=== PATIENT | male | born 1950 | race Caucasian/White ===

== ENCOUNTER 2021-11-17 23:52 | Emergency (ER) | payer OTHER ==
--- NOTE | 2021-11-18 01:34 | ER ---
Nurse's Notes [facility] Name: Adrian Park Jr Age: 71 yrs Sex: Male : 1950 Arrival Date: 11/17/2021 Time: 23:55 Bed 17 Private MD: Diagnosis: Hydrocele, unspecified;Orchitis Presentation: 11/17 23:59 Chief complaint: Patient states: The testicular pain started this morning, I thought it jb4 was due to sitting on a hard surface yesterday. The pain has been getting worse and my thought I may have testicular torsion. The pain is to the point it is almost making me pass out. Coronavirus screen: At this time, the client does not indicate any symptoms associated with coronavirus-19. Ebola Screen: No symptoms or risks identified at this time. Initial Sepsis Screen: Does the patient meet any 2 criteria? No. Patient's initial sepsis screen is negative. Does the patient have a suspected source of infection? No. Patient's initial sepsis screen is negative. Risk Assessment: Do you want to hurt yourself or someone else? Patient reports no desire to harm self or others. Onset of symptoms was November 18, 2021. Transition of care: patient was not received from another setting of care. 23:59 Method Of Arrival: Wheelchair jb4 23:59 Acuity: BILL 3 jb4 Historical: - Allergies: 11/18 00:02 Lipitor; jb4 - PMHx: 00:02 HTN; cancer; jb4 - PSHx: 00:02 face surgery; SHAMA foot surgery; jb4 - Immunization history:: Adult Immunizations up to date. - Social history:: Smoking status: Patient denies any tobacco usage or history of. Screenin:00 Abuse screen: Denies threats or abuse. Denies injuries from another. Nutritional lg3 screening: No deficits noted. Tuberculosis screening: No symptoms or risk factors identified. Fall Risk None identified. Assessment: 02:00 General: Appears in no apparent distress. comfortable, Behavior is calm, cooperative. lg3 Pain: Complains of pain in right testicle. Neuro: No deficits noted. Level of Consciousness is awake, alert, obeys commands, Oriented to person, place, time, situation. Cardiovascular: No deficits noted. Denies chest pain, shortness of breath, Capillary refill < 3 seconds Clubbing of nail beds is absent JVD is absent Patient's skin is warm and dry. Respiratory: No deficits noted. Airway is patent Trachea midline Respiratory effort is even, unlabored, Respiratory pattern is regular, symmetrical, Breath sounds are clear bilaterally. GI: Abdomen is round non-distended, Bowel sounds present X 4 quads. Abd is soft and non tender X 4 quads. : No deficits noted. No signs and/or symptoms were reported regarding the genitourinary system. EENT: No deficits noted. No signs and/or symptoms were reported regarding the EENT system. Derm: No deficits noted. No signs and/or symptoms reported regarding the dermatologic system. Skin is intact, is healthy with good turgor, Skin is dry, Skin temperature is warm. Musculoskeletal: No deficits noted. No signs and/or symptoms reported regarding the musculoskeletal system. Circulation, motion, and sensation intact. Range of motion: intact in all extremities. 03:10 Reassessment: Patient appears in no apparent distress at this time. No changes from lg3 previously documented assessment. Patient and/or family updated on plan of care and expected duration. Pain level reassessed. Patient is alert, oriented x 3, equal unlabored respirations, skin warm/dry/pink. Patient states feeling better. Vital Signs: 11/17 23:59 BP 124 / 77; Pulse 78; Resp 16; Temp 99.1(TE); Pulse Ox 100% on R/A; Weight 108.86 kg jb4 (R); Height 5 ft. 6 in. (167.64 cm) (R); 11/18 03:10 BP 128 / 85; Pulse 84; Resp 16 S; Temp 98.8(O); Pulse Ox 100% on R/A; lg3 11/17 23:59 Body Mass Index 38.74 (108.86 kg, 167.64 cm) jb4 ED Course: 11/17 23:55 Patient arrived in ED. bp1 11/18 00:02 Triage completed. jb4 00:02 Arm band placed on right wrist. jb4 00:20 Libertad Escobar, RN is Primary Nurse. lg3 00:28 Mk Desouza MD is Attending Physician. kay 00:57 US Scrotum Testicles In Process Unspecified. EDMS 01:32 Wong Mcgill MD is Referral Physician. kay 01:50 Initial lab(s) drawn, by me, sent to lab. Inserted saline lock: 20 gauge in right bb antecubital area, using aseptic technique. Blood collected. 02:00 Patient has correct armband on for positive identification. Placed in gown. Bed in low lg3 position. Call light in reach. Side rails up X 1. Client placed on continuous cardiac and pulse oximetry monitoring. NIBP monitoring applied. Door closed. Noise minimized. Warm blanket given. 03:09 No provider procedures requiring assistance completed. IV discontinued, intact, lg3 bleeding controlled, No redness/swelling at site. Pressure dressing applied. Administered Medications: 01:44 Drug: LevOfloxacin 750 mg Route: PO; lg3 01:44 Follow up: Response: No adverse reaction lg3 01:59 Drug: NS 0.9% 1000 ml Route: IV; Rate: 1 bolus; Site: right antecubital; lg3 03:09 Follow up: Response: No adverse reaction; IV Status: Completed infusion; IV Intake: lg3 1000ml 01:59 Drug: Rocephin (cefTRIAXone) 2 grams Route: IV; Rate: per protocol; Site: right lg3 antecubital; 01:59 Follow up: Response: No adverse reaction; IV Status: Completed infusion; IV Intake: [id number] 01:59 Drug: morphine 2 mg Route: IVP; Infused Over: 4 mins; Site: right antecubital; lg3 02:00 Follow up: Response: No adverse reaction lg3 01:59 Drug: Zofran (Ondansetron) 4 mg Route: IVP; Site: right antecubital; lg3 02:00 Follow up: Response: No adverse reaction lg3 Medication: 03:10 VIS not applicable for this client. lg3 Intake: 01:59 IV: 10ml; Total: 10ml. lg3 03:09 IV: 1000ml; Total: 1010ml. lg3 Outcome: 01:33 Discharge ordered by MD. villanueva 03:09 Discharged to home ambulatory. lg3 03:09 Condition: stable 03:09 Discharge instructions given to patient, Instructed on discharge instructions, follow up and referral plans. medication usage, Demonstrated understanding of instructions, follow-up care, medications, Prescriptions given X 2. 03:28 Patient left the ED. lg3 Signatures: Dispatcher [employer] EDMk Hou MD MD cha Ballard Kasia, RN RN bb Jeramy Og, RN RN jb4 Libertad Escobar RN RN lg3 Fannie De Anda
--- NOTE | 2021-11-18 01:34 | EDPHYS ---
Physician Documentation [facility] Name: Adrian Park Jr Age: 71 yrs Sex: Male : 1950 Arrival Date: 11/17/2021 Time: 23:55 Bed 17 Private MD: JESSICA Physician Mk Desouza HPI: 11/18 01:29 This 71 yrs old Male presents to ER via Wheelchair with complaints of kay Testicular Pain. 01:29 The patient presents with tenderness, of the right testicle, of the right inguinal kay area. Onset: The symptoms/episode began/occurred 2 day(s) ago. Modifying factors: The symptoms are alleviated by remaining still, the symptoms are aggravated by movement, pressure. Associated signs and symptoms: The patient has no apparent associated signs or symptoms. Severity of symptoms: At their worst the symptoms were mild, moderate, in the emergency department the symptoms are unchanged. The patient has not experienced similar symptoms in the past. Historical: - Allergies: 00:02 Lipitor; jb4 - PMHx: 00:02 HTN; cancer; jb4 - PSHx: 00:02 face surgery; SHAMA foot surgery; jb4 - Immunization history:: Adult Immunizations up to date. - Social history:: Smoking status: Patient denies any tobacco usage or history of. ROS: 01:30 Constitutional: Negative for fever, chills, and weight loss, Eyes: Negative for injury, kay pain, redness, and discharge, ENT: Negative for injury, pain, and discharge, Neck: Negative for injury, pain, and swelling, Cardiovascular: Negative for chest pain, palpitations, and edema, Respiratory: Negative for shortness of breath, cough, wheezing, and pleuritic chest pain, Abdomen/GI: Negative for abdominal pain, nausea, vomiting, diarrhea, and constipation, Back: Negative for injury and pain, MS/Extremity: Negative for injury and deformity, Skin: Negative for injury, rash, and discoloration, Neuro: Negative for headache, weakness, numbness, tingling, and seizure, Psych: Negative for depression, anxiety, suicide ideation, homicidal ideation, and hallucinations, Allergy/Immunology: Negative for hives, rash, and allergies, Endocrine: Negative for neck swelling, polydipsia, polyuria, polyphagia, and marked weight changes, Hematologic/Lymphatic: Negative for swollen nodes, abnormal bleeding, and unusual bruising. 01:30 : Positive for testicular pain of the right testicle. Exam: 01:30 Constitutional: This is a well developed, well nourished patient who is awake, alert, kay and in no acute distress. Head/Face: Normocephalic, atraumatic. Eyes: Pupils equal round and reactive to light, extra-ocular motions intact. Lids and lashes normal. Conjunctiva and sclera are non-icteric and not injected. Cornea within normal limits. Periorbital areas with no swelling, redness, or edema. ENT: Nares patent. No nasal discharge, no septal abnormalities noted. Tympanic membranes are normal and external auditory canals are clear. Oropharynx with no redness, swelling, or masses, exudates, or evidence of obstruction, uvula midline. Mucous membranes moist. Neck: Trachea midline, no thyromegaly or masses palpated, and no cervical lymphadenopathy. Supple, full range of motion without nuchal rigidity, or vertebral point tenderness. No Meningismus. Chest/axilla: Normal chest wall appearance and motion. Nontender with no deformity. No lesions are appreciated. Cardiovascular: Regular rate and rhythm with a normal S1 and S2. No gallops, murmurs, or rubs. Normal PMI, no JVD. No pulse deficits. Respiratory: Lungs have equal breath sounds bilaterally, clear to auscultation and percussion. No rales, rhonchi or wheezes noted. No increased work of breathing, no retractions or nasal flaring. Abdomen/GI: Soft, non-tender, with normal bowel sounds. No distension or tympany. No guarding or rebound. No evidence of tenderness throughout. Back: No spinal tenderness. No costovertebral tenderness. Full range of motion. Skin: Warm, dry with normal turgor. Normal color with no rashes, no lesions, and no evidence of cellulitis. MS/ Extremity: Pulses equal, no cyanosis. Neurovascular intact. Full, normal range of motion. Neuro: Awake and alert, GCS 15, oriented to person, place, time, and situation. Cranial nerves II-XII grossly intact. Motor strength 5/5 in all extremities. Sensory grossly intact. Cerebellar exam normal. Normal gait. Psych: Awake, alert, with orientation to person, place and time. Behavior, mood, and affect are within normal limits. 01:30 : CVA tenderness, is absent, Male external genitalia: erythema, is seen in the right inguinal area, that is moderate, swelling, tenderness. Vital Signs: 11/17 23:59 BP 124 / 77; Pulse 78; Resp 16; Temp 99.1(TE); Pulse Ox 100% on R/A; Weight 108.86 kg jb4 (R); Height 5 ft. 6 in. (167.64 cm) (R); 11/18 03:10 BP 128 / 85; Pulse 84; Resp 16 S; Temp 98.8(O); Pulse Ox 100% on R/A; lg3 11/17 23:59 Body Mass Index 38.74 (108.86 kg, 167.64 cm) jb4 MDM: 00:28 Patient medically screened. [facility] 01:31 Differential diagnosis: nonspecific abdominal pain, UTI. Data reviewed: vital signs, [facility] nurses notes. 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 rate is 78 beats/min, Pulse oximetry: on room air is 100 %. Counseling: I had a detailed discussion with the patient and/or guardian regarding: the historical points, exam findings, and any diagnostic results supporting the discharge/admit diagnosis, lab results, radiology results, the need for outpatient follow up, for definitive care, a family practitioner, a urologist. 11/18 00:41 Order name: CBC with Diff [facility] 11/18 00:41 Order name: Comprehensive Metabolic Panel [facility] 11/18 00:20 Order name: US Scrotum Testicles kb Administered Medications: 01:44 Drug: LevOfloxacin 750 mg Route: PO; lg3 01:44 Follow up: Response: No adverse reaction lg3 01:59 Drug: NS 0.9% 1000 ml Route: IV; Rate: 1 bolus; Site: right antecubital; lg3 03:09 Follow up: Response: No adverse reaction; IV Status: Completed infusion; IV Intake: lg3 1000ml 01:59 Drug: Rocephin (cefTRIAXone) 2 grams Route: IV; Rate: per protocol; Site: right lg3 antecubital; 01:59 Follow up: Response: No adverse reaction; IV Status: Completed infusion; IV Intake: 18nxmi0 01:59 Drug: morphine 2 mg Route: IVP; Infused Over: 4 mins; Site: right antecubital; lg3 02:00 Follow up: Response: No adverse reaction lg3 01:59 Drug: Zofran (Ondansetron) 4 mg Route: IVP; Site: right antecubital; lg3 02:00 Follow up: Response: No adverse reaction lg3 Disposition Summary: 11/18/21 01:33 Discharge Ordered Location: Home [facility] Problem: new kay Symptoms: have improved kay Condition: Stable kay Diagnosis - Hydrocele, unspecified kay - Orchitis kay Followup: kay - With: Private Physician - When: 2 - 3 days - Reason: Recheck today's complaints, Continuance of care, Re-evaluation by your physician Followup: kay - With: Wong Mcgill MD - When: 2 - 3 days - Reason: Recheck today's complaints, Continuance of care, Re-evaluation by your physician Discharge Instructions: - Discharge Summary Sheet kay - Orchitis kay - Testicular Self-Exam kay - Hydrocele, Adult [facility] Forms: - Medication Reconciliation Form kay - Thank You Letter kay - Antibiotic Education kay - Prescription Opioid Use [facility] Prescriptions: - levofloxacin 750 mg Oral Tablet - take 1 tablet by ORAL route once daily; 7 tablet; Refills: 0, Product Selection [facility] Permitted - Tylenol-Codeine #3 300 mg-30 mg Oral - take 2 tablet by ORAL route every 6 hours; 20 tablet; Refills: 0, Product [facility] Selection Permitted Signatures: Dispatcher [employer] Mk Wayne MD MD cha Bryson, James, RN RN jb4 Libertad Escobar RN RN lg3
[2021-11-18] MEDS ORDERED: MORPHINE 2 MG/ML SYR ONE (01:45)
[2021-11-18] MEDS ORDERED: NA CHLORIDE 0.9% 1,000 ML ONE (01:45)
[2021-11-18] MEDS ORDERED: ONDANSETRON 4 MG/2 ML VIAL ONE (01:45)
[2021-11-18] MEDS ORDERED: CEFTRIAXONE 2000 MG/VIAL ONE (01:45)
[2021-11-18] MEDS ORDERED: levoFLOXacin 750 MG TAB ONE (01:50)
[2021-11-18 02:09] LABS: Absolute Lymphocytes (CBC) 0.8 K/uL (0.7-4.9); Hematocrit 36.3 % (39.6-49.0); Lymphocytes % 8.1 % (15.3-44.8); MCV 91.5 fL (80-100); MPV 8.7 fL (7.6-11.3); RBC Red Blood Cell Count 3.97 M/uL (4.33-5.43)
[2021-11-18 02:19] LABS: Albumin 3.9 g/dL (3.4-5.0); Bilirubin Total 0.6 mg/dL (0.2-1.0); Protein, Total 7.5 g/dL (6.4-8.2)
[2021-11-18 03:42] VITALS: O2SAT 100
[2021-11-18 03:44] VITALS: BP 128/85; TEMP 98.8
--- NOTE | 2021-11-18 16:01 | RAD REPORT ---
EXAM DESCRIPTION: US Scrotum CLINICAL HISTORY: The patient is 71 years old and is Male; PAIN TECHNIQUE: Real-time ultrasound of the scrotum with color Doppler and image documentation. COMPARISON: No relevant prior studies available. FINDINGS: RIGHT TESTICLE: The right testicle measures 3.3 x 1.9 x 2.5 cm. The right testicle is ho mogeneous. Normal arterial and venous color Doppler and spectral waveform is present. LEFT TESTICLE: The left testicle measures 4.0 x 1.7 x 2.7 cm. The left testicle is homogeneous. N ormal arterial and venous color Doppler and spectral waveform is present. EPIDIDYMIDES: Unremarkable. SCROTUM: Small bilateral hydroceles are present. IMPRESSION: Unremarkable scrotal ultrasound. Electronically signed by: Kim Sandy MD 11/18/2021 10:36 PM CDT Due to temporary technical issues with the PACS/Fluency reporting system, reports are being signed by the in house radiologists without review as a courtesy to insure prompt reporting. The interpreting radiologist is fully responsible for the content of the report.
== END 2021-11-18 03:28 | disposition home or self-care (01) ==
LOC: ER 23:52
DX: N43.3 Hydrocele, unspecified (principal); N45.2 Orchitis; I10 Essential (primary) hypertension
CPT/HCPCS: 96361; 85025; 36415; 80053; 76870; 96375; 96374; 99284; J2270; J7030; J2405; J0696

== ENCOUNTER 2022-04-01 07:26 | Day surgery (SDC) | payer OTHER ==
[2022-03-24 14:49] LABS: Absolute Lymphocytes (CBC) 1.1 K/uL (0.7-4.9); Hematocrit 37.5 % (39.6-49.0); Lymphocytes % 23.8 % (15.3-44.8); RBC Red Blood Cell Count 4.03 M/uL (4.33-5.43)
--- NOTE | 2022-03-24 14:56 | RAD REPORT ---
EXAM DESCRIPTION: RAD - Chest Pa And Lat (2 Views) - 03/24/2022 2:44 pm CLINICAL HISTORY: Pre op pending urolift Chest pain. COMPARISON: No comparisons FINDINGS: The lungs are clear. The heart is upper limit normal in size. No displaced fractures. IMPRESSION: No acute or concerning finding suspected.
[2022-03-24 14:59] LABS: Protime INR 1.1
--- NOTE | 2022-03-25 08:22 | EKG ---
Test Date: 2022-03-24 Test Time: 14:17:35 Accounting Bookkeeper: KAROL MEASUREMENT RESULTS: Intervals: Rate: 60 AR: 210 QRSD: 104 QT: 396 QTc: 396 [place]: P: 60 AR: 210 QRS: -53 T: 3 INTERPRETIVE STATEMENTS: Sinus rhythm with 1st degree AV block Low voltage QRS Left anterior fascicular block Cannot rule out Inferior infarct (masked by fascicular block?), age undetermined Possible Anterolateral infarct, age undetermined Abnormal ECG Compared to ECG 06/17/2006 10:10:29 First degree AV block now present Low QRS voltage now present Left anterior fascicular block now present Myocardial infarct finding still present Electronically Signed On 03-25-22 08:19:56 WORKERS COMPENSATION EXAMINER by Rasta Wells
[~2022-04-01 07:26] MED LIST: Gentamicin Inj 240 MG in NA CHLORIDE 0.9% 100 ML IV SCH
[2022-04-01] MEDS ORDERED: AMPICILLIN SODIUM 2 GM/VIAL VIAL ONE (07:33)
[2022-04-01] MEDS ORDERED: Ringers Lactate 1,000 ML IV ONE (07:33)
[2022-04-01] MEDS ORDERED: LIDOCAINE 1% MPF 5 ML VIAL ONE (08:01)
[2022-04-01] MEDS ORDERED: propofoL 200 MG/20 ML VIAL IV ONE ×2 (08:01→08:21)
[2022-04-01] MEDS ORDERED: MIDAZOLAM HCL 2 MG/2 ML INJ ONE (08:01)
[2022-04-01] MEDS ORDERED: FENTANYL CITR 100 MCG/2 ML ONE (08:01)
[2022-04-01] MEDS ORDERED: TRAMADOL 37.5mg/APAP 325mg PER TAB PO ONE (08:14)
[2022-04-01] MEDS ORDERED: PHENAZOPYRIDINE 100MG TAB PO ONE ×2 (08:14→09:50)
[2022-04-01] MEDS ORDERED: ONDANSETRON 4 MG/2 ML VIAL ONE (08:29)
[2022-04-01] MEDS ORDERED: dexAMETHasone 10 MG/ML VIAL ONE (08:29)
[2022-04-01] MEDS ORDERED: TRAMADOL 37.5mg/APAP 325mg PER TAB ONE (09:49)
[2022-04-01 10:41] VITALS: BP 124/66; TEMP 97; O2SAT 98
--- NOTE | 2022-04-07 10:54 | OP ---
Surgeon: NAHUM BORJA Preoperative Diagnosis: Benign prostatic hypertrophy with lower urinary tract obstruction and sympto ms. Postoperative Diagnosis: Benign prostatic hypertrophy with lower urinary tract obstruction and sympt oms. Principal Procedure: Prostatic urethral lift/UroLift with 6 implants placed. Indication For Procedure: Mr. Chandler presented to Urology Clinic with bothersome urinary symptoms, refractory to medical therapy. He underwent outpatient evaluation revealing an approximately 25 g gl and and lateral lobar hypertrophy with an elevated median bar. He was counseled on potential options for surgical therapy to include the UroLift and other ablative techniques and elected the UroLift. Procedure In Detail: The patient was consented in the preoperative holding area before being transfe rred to the operative suite, where general anesthesia was induced. He was given ampicillin 2 g and g entamicin 2-3 mg/kg IV antimicrobial prophylaxis and Pneumoboots were provided for DVT prophylaxis. He was placed in the lithotomy position, padded, and secured to the table appropriately. His genital ia was prepped with Hibiclens and he was draped in standard fashion. The case was begun using the 20 -Pakistani UroLift obturator and scope to traverse the urethra and into the bladder with ease. The prev iously noted elevated bladder neck was again encountered along the lateral lobar hypertrophy. The bl adder was decompressed, and the cystoscope bridge was replaced with the UroLift delivery device. The first treatment site was the patient's left side approximately 2 cm distal to the bladder neck. The distal tip of the delivery device was then angled laterally, approximately 10 degrees at this positi on decompressed the lateral lobe. The trigger was pulled deploying the needle containing the implant through the prostate. The needle was retracted allowing one end of the implant to be delivered to t he capsular surface of the prostate, and then the implant was tensioned to ensure capsular seeding. Additional tensioning was then undertaken and then the angle goes back to the midline before advancin g until the white line was observed in the delivery [place] at which point the urethral infuse was affixe d to the monofilament, tailoring the size of the implant. An excess filament was severed. The deliv jim device was then readvanced into the bladder and a second implant was placed into the bladder. Th e second delivery device was then used to target an implant at the bladder neck, this time about 1.5 cm distal to the bladder neck in order to be a little closer and achieve a bit more of an anterior el evation at the level of the bladder neck. A similar protocol was undertaken to seat that implant and deliver the capsular tab, which ended up at the bladder neck nicely elevating it with the urethral e ndpiece placed within about 0.5 cm of the bladder neck, but nicely invaginated into the anterior loba r tissue. As a result, I then switched the delivery device for visual obturator and surveyed the kay nnel. There was still some anterior overhang largely emanating from the left anterolateral surface o f the prostate, mostly at the bladder neck and so, I determined that an additional implant would even tually need to be placed on the left side a bit closer to the bladder neck, then the original implant was placed. There was additional apical and mid gland lateral lobar hypertrophy, which was visible, so I selected the next implant site at the left apical region at the level of the verumontanum. An implant was delivered there and did lateralize the apical lateral tissue. An additional implant was then placed on the right side at the level of the verumontanum. This created a nice open channel at the apex of the prostate. I then selected a fifth implant site at the previously discussed left ante rolateral bladder neck region, so that implant was placed at approximately 1.5 cm distal to the bladd er neck and did nicely elevate the bladder neck in that region creating a nice open channel. Some re sidual lateral lobar tissue within the mid gland region was observed on the left side, also contribut ing to some anterolateral overhang from the right side of the prostate, so a 6th implant was placed t his time more distal to the bladder neck and between that and the apical implant more anteriorly in o rder to nicely elevate the bladder neck and create that continuous anterior channel, visible from the verumontanum into the bladder. In the end, with his bladder decompressed, I then surveyed the chann el with the visual obturator and a nice continuous channel was observed with minimal hematuria. As a result, I backfilled his bladder before removing the scope and placing an 18-Pakistani coude-tipped cat heter into his bladder with ease. 15 cc of sterile water was placed in the balloon, and the patient was then taken out of the lithotomy position. The catheter was connected to a leg bag and he was bruce kened from general anesthesia before being transferred to a stretcher and then transferred to the rec overy room in good condition. Complications: None. Discharge Disposition: He will be discharged with a Medrol Dosepak since he had a lot of irritative urinary symptoms prior to the surgery to decrease some of the inflammation. He also will be discharg ed with Bactrim as well as a refill of his tramadol for pain management. Subsequent followup should be established in about 1 month's time. AYE/RACHEL Voice ID: [id number] Report ID: [id number]
== END 2022-04-01 11:02 | disposition home or self-care (01) ==
LOC: OR 07:26
PROVIDERS: ATTEND Urology
PROC: 3C1ZX8Z Irrigation of Indwelling Device using Irrigating Substance, External Approach (ICD-10-PCS; 2022-04-01)
PROC: 0T7D8DZ Dilation of Urethra with Intraluminal Device, Via Natural or Artificial Opening Endoscopic (ICD-10-PCS; principal; 2022-04-01 08:30)
DX: N40.1 Benign prostatic hyperplasia with lower urinary tract symptoms (principal)
CPT/HCPCS: 52441; 52442 ×5; 93005; 87088; 85025; 87086; 80048; 36415; 85610; 71046; 51700; J2704 ×2; J2001; J1580; J2250; J3010; J1100; J7120; J2405; J0290

== ENCOUNTER 2024-08-23 02:19 | Observation (INO) | payer OTHER ==
[2024-08-23] MEDS ORDERED: ONDANSETRON 4 MG/2 ML VIAL ONE ×2 (02:43→05:44)
[2024-08-23] MEDS ORDERED: MORPHINE 4 MG/ML SYR ONE ×2 (02:43→05:45)
[2024-08-23] MEDS ORDERED: MORPHINE 2 MG/ML SYR ONE ×2 (02:44→07:25)
[2024-08-23 02:52] LABS: Absolute Eosinophils 0.1 K/uL (0-0.5); Absolute Lymphocytes (CBC) 1.1 K/uL (0.7-4.9); Absolute Monocytes 0.7 K/uL (0.1-1.3); Absolute Neutrophil 4.2 K/uL (1.8-8.0); Basophils % 0.6 % (0-1.3); Eosinophils % 1.5 % (0-4.4); Hematocrit 39.1 % (39.6-49.0); Hemoglobin 13.1 g/dL (13.6-17.9); Lymphocytes % 17.5 % (15.3-44.8); MCH 30.4 pg (27.0-35.0); MCHC 33.6 g/dL (32.0-36.0); MCV 90.6 fL (80-100); MPV 7.8 fL (7.6-11.3); Monocytes % 11.5 % (3.3-12.3); Neutrophils % 68.9 % (41.7-73.7); Nucleated Red Blood Cells % 0.1 % (0-0); Platelets 154 thou/uL (152-406); RBC Red Blood Cell Count 4.31 M/uL (4.33-5.43); Red Cell Distribution Width 13.3 % (12.1-15.2)
[2024-08-23 02:56] LABS: PT Prothrombin Time 12.5 SECONDS (10-13.0); Protime INR 1.1
[2024-08-23 03:12] LABS: ALT/SGPT 23 U/L (16-61); AST/SGOT 18 U/L (15-37); Albumin 3.6 g/dL (3.4-5.0); Alkaline Phosphatase 61 U/L (45-117); BUN Blood Urea Nitrogen 28 mg/dL (7-18); Bicarbonate 26 mEq/L (21-32); Bilirubin Total 0.4 mg/dL (0.2-1.0); Globulin 3.6 g/dL (2.3-3.5); Glomerular Filtration Rate 56 ml/min (=/>90); Glucose Level 114 mg/dL (74-106); Magnesium 2.2 mg/dL (1.6-2.4); NT PRO-BNP 300 pg/mL (<125); Protein, Total 7.2 g/dL (6.4-8.2); Sodium Level 138 mEq/L (136-145); Troponin High Sensitivity 7.1 pg/mL (<58.9)
[2024-08-23 03:35] LABS: Bilirubin Direct < 0.2 mg/dL (0-0.2); Bilirubin Indirect, Calculated 0.2 mg/dL (0.2-0.8)
[2024-08-23 03:41] LABS: Lipase 27 U/L (13-75)
[2024-08-23] MEDS ORDERED: NA CHLORIDE 0.9% 1,000 ML ONE ×2 (05:45→10:12)
--- NOTE | 2024-08-23 06:17 | RAD REPORT ---
EXAM: XR CHEST 1 VIEW HISTORY: 74 years Male CHEST PAIN COMPARISON: None. FINDINGS: LUNGS/PLEURA: The lungs are clear. No pleural effusions or pneumothorax. No pulmonary edema. CARDIAC/MEDIASTINUM: The cardiac silhouette is within normal limits. UPPER ABDOMEN: No significant abnormality. BONES: No acute abnormality. LINES/TUBES/OTHER: N/A IMPRESSION: No evidence of acute cardiopulmonary disease. Electronically signed by: Tigre Mosquera MD 08/23/2024 06:06 AM CDT Due to temporary technical issues with the PACS/Advanced LEDs reporting system, reports are being lilliana d by the in-house radiologist without review as a courtesy to ensure prompt reporting the interpreting radiologist is fully responsible for the content of the report. Transcribed Date/Time: 08/23/2024 6:17 AM
--- NOTE | 2024-08-23 06:26 | RAD REPORT ---
EXAM: CT CHEST ABDOMEN PELVIS WITH IV CONTRAST CLINICAL INDICATION: Male, 74 years CHEST PAIN TECHNIQUE: CT chest, abdomen and pelvis was performed, with IV contrast, as per department protocol. Axial, sagittal and coronal reconstructions were obtained. One or more of the following dose reduction techniques were used: Automated exposure control, adjustment of the mA and/or kV according to the patient size, and/or iterative reconstruction. Unless otherwise specified, incidental findings do not require dedicated imaging follow-up. [id number]. COMPARISON: No prior exam. FINDINGS: CHEST: LOWER NECK/CHEST WALL: No suspicious thyroid nodules or lymphadenopathy. MEDIASTINUM AND LYMPH NODES: No mediastinal mass or fluid collection. Normal size mediastinal, hilar, and axillary lymph nodes. THORACIC AORTA: No thoracic aortic aneurysm. Atherosclerotic changes are present. PULMONARY ARTERIES: Caliber is within normal limits. Negative for pulmonary embolism to the level of the subsegmental pulmonary arteries. The pulmonary arteries are sufficiently opacified. HEART: Normal heart size. Moderate coronary artery calcifications. No significant pericardial effusio n. LUNGS AND AIRWAYS: Airways are clear. No evidence of airspace or interstitial process. No suspicious and/or stable pulmonary nodules. PLEURA: No pleural effusion. ABDOMEN: UPPER GI: No significant focal abnormality. LIVER: Hepatic steatosis, but otherwise unremarkable. GALLBLADDER/BILE DUCTS: No biliary ductal dilatation. PANCREAS: Atrophy, but otherwise unremarkable. SPLEEN: Unremarkable. ADRENALS: No adrenal masses. KIDNEYS AND URETERS: No hydronephrosis. No suspicious renal mass. No renal calculi identified. No ure teral calculi. ABDOMINAL AORTA AND OTHER VESSELS: Moderate atherosclerotic changes without aortic aneurysm. PERITONEUM: No abnormal free fluid. No free air. LYMPH NODES: No pathologic lymphadenopathy. ABDOMINAL WALL: Fat containing inguinal hernias. SMALL BOWEL/COLON: Small bowel has normal course and caliber. No colonic wall thickening or pericolon ic inflammatory changes. Normal appendix. Mild formed stool burden. URINARY BLADDER: Underdistended but grossly unremarkable. REPRODUCTIVE ORGANS: Prostate seeds COMBINED: MUSCULOSKELETAL: No acute or suspicious osseous abnormality. ADDITIONAL FINDINGS: None. IMPRESSION: No acute findings in the chest, abdomen, or pelvis. Incidental findings as noted above. Electronically signed by: Tigre Mosquera MD 08/23/2024 06:14 AM CDT Due to temporary technical issues with the [employer] reporting system, reports are being lilliana d by the in-house radiologist without review as a courtesy to ensure prompt reporting the interpreting radiologist is fully responsible for the content of the report. Transcribed Date/Time: 08/23/2024 6:25 AM
--- NOTE | 2024-08-23 07:18 | EDPHYS ---
Physician Documentation [facility] Name: Adrian Park Jr Age: 74 yrs Sex: Male : 1950 Arrival Date: 08/23/2024 Time: 02:19 Bed 4 Private MD: ED Physician Alphonso Olmstead HPI: 08/23 03:03 This 74 yrs old Male presents to ER via EMS with complaints of Chest Pain. sp4 07:06 74-year-old male presents with acute moderate midsternal chest pain associated with sp4 epigastric pain associated with left shoulder pain.. 07:06 Patient presents with EMS with EMS administering 324 mg p.o. ASA. Patient's medications sp4 include lisinopril, omeprazole, Synthroid, tramadol, rosuvastatin. Patient reports pain started when I am woke him up from his sleep its epigastric with midsternal chest pain associated with dizziness. Patient has documented history of coronary artery disease up to 20% blockage in certain spaces. Patient simulation educator is Dr. Caba. Historical: - Allergies: 02:21 Lipitor; ha1 - PMHx: 02:21 Cancer; HTN; Hypercholesterolemia; bradycardia; ha1 - PSHx: 02:21 SHAMA foot surgery; face surgery; ha1 - Immunization history:: Adult Immunizations up to date. - Infectious Disease History:: Denies. - Social history:: Smoking status: unknown. - Family history:: not pertinent. ROS: 07:06 Constitutional: Negative for fever, chills, and weight loss, positive for sp4 midsternal and epigastric pain 07:06 All other systems are negative, Exam: 07:06 Constitutional: This is a well developed, well nourished patient who is awake, alert, sp4 and in no acute distress. Head/Face: Normocephalic, atraumatic. Eyes: Pupils equal round and reactive to light, extra-ocular motions intact. Lids and lashes normal. Conjunctiva and sclera are not injected. Cornea within normal limits. Periorbital areas with no swelling, redness, or edema. ENT: Nares patent. No nasal discharge, no septal abnormalities noted. Tympanic membranes are normal and external auditory canals are clear. Oropharynx with no redness, swelling, or masses, exudates, or evidence of obstruction, uvula midline. Mucous membranes moist. Neck: Trachea midline, no thyromegaly or masses palpated, and no cervical lymphadenopathy. Supple, full range of motion without nuchal rigidity, or vertebral point tenderness. Chest/axilla: Normal chest wall appearance and motion. Nontender with no deformity. No lesions are appreciated. Cardiovascular: Regular rate and rhythm with a normal S1 and S2. No gallops, murmurs, or rubs. Normal PMI, no JVD. No pulse deficits. Respiratory: Lungs have equal breath sounds bilaterally, clear to auscultation and percussion. No rales, rhonchi or wheezes noted. No increased work of breathing, no retractions or nasal flaring. Abdomen/GI: Soft, with normal bowel sounds. No distension or tympany. No guarding or rebound. No evidence of tenderness throughout. Back: No spinal tenderness. No costovertebral tenderness. Skin: Warm, dry with normal turgor. Normal color with no rashes, no lesions, and no evidence of cellulitis. MS/ Extremity: Pulses equal, no cyanosis. Neurovascular intact. Full, normal range of motion. Neuro: Awake and alert, GCS 15, oriented to person, place, time, and situation. Cranial nerves II-XII grossly intact. Motor strength 5/5 in all extremities. Sensory grossly intact. Psych: Awake, alert, with orientation to person, place and time. Behavior, mood, and affect are within normal limits 07:06 ECG was reviewed by the Attending Physician. EKG 0 227 sinus rhythm first-degree AV block left axis deviation otherwise normal Vital Signs: 02:21 BP 117 / 67; Pulse 60; Resp 17 S; Temp 98.1(O); Pulse Ox 98% on R/A; Weight 114.76 kg; ha1 Height 5 ft. 9 in. ; Pain 8/10; 02:40 BP 117 / 77; Pulse 61; Resp 20; Pulse Ox 100% ; al5 04:46 BP 118 / 71; Pulse 58; Resp 17; Pulse Ox 98% on R/A; kd3 06:14 BP 128 / 72; Pulse 62; Resp 18; Pulse Ox 98% on R/A; kd3 07:52 BP 103 / 64; Pulse 52; Pulse Ox 98% on R/A; ap3 02:21 Body Mass Index 37.36 (114.76 kg, 175.26 cm) ha1 02:21 Pain Scale: Adult ha1 Juliana Coma Score: 07:06 Eye Response: spontaneous(4). Motor Response: obeys commands(6). Verbal Response: sp4 oriented(5). Total: 15. MDM: 07:12 HEART Score: History: Highly Suspicious (2), ECG: Non specific repolarization sp4 disturbance / LBTB / PM (1), Age: > or = 65 years (2), Risk Factors: > or = 3 Risk factors for atherosclerotic disease (2), Troponin: < or = 1 x Normal Limit (0), Total Score = 7. The patient was not given aspirin in the Emergency Department. Administered by EMS. Data reviewed: vital signs, nurses notes, EMS record, lab test result(s), EKG, radiologic studies. Consideration of Admission/Observation Patient was admitted/placed on observation. Escalation of care including admission/observation considered. Management of patient was discussed with the following: Hospitalist: Anna CASAS . ED course: Stable for admission.. ED course: COMPARISON: No prior exam. FINDINGS: CHEST: LOWER NECK/CHEST WALL: No suspicious thyroid nodules or lymphadenopathy. MEDIASTINUM AND LYMPH NODES: No mediastinal mass or fluid collection. Normal size mediastinal, hilar, and axillary lymph nodes. THORACIC AORTA: No thoracic aortic aneurysm. Atherosclerotic changes are present. PULMONARYARTERIES: Caliber is within normal limits. Negative for pulmonary embolism to the level of the subsegmental pulmonary arteries. The pulmonary arteries are sufficiently opacified. HEART: Normal heart size. Moderate coronary artery calcifications.No significant pericardial effusion. LUNGS AND AIRWAYS: Airways are clear. No evidence of airspace or interstitial process.No suspicious and/or stable pulmonary nodules. PLEURA: No pleural effusion. ABDOMEN: UPPER GI: No significant focal abnormality. LIVER: Hepatic steatosis, but otherwise unremarkable. GALLBLADDER/BILE DUCTS: No biliary ductal dilatation. PANCREAS: Atrophy, but otherwise unremarkable. SPLEEN: Unremarkable. ADRENALS: No adrenal masses. KIDNEYS AND URETERS: No hydronephrosis.No suspicious renal mass.No renal calculi identified.No ureteral calculi. ABDOMINAL AORTA AND OTHER VESSELS: Moderate atherosclerotic changes without aortic aneurysm. PERITONEUM: No abnormal free fluid. No free air. LYMPH NODES: No pathologic lymphadenopathy. ABDOMINAL WALL: Fat containing inguinal hernias. SMALL BOWEL/COLON: Small bowel has normal course and caliber. No colonic wall thickening or pericolonic inflammatory changes.Normal appendix. Mild formed stool burden. URINARYBLADDER: Underdistended but grossly unremarkable. REPRODUCTIVE ORGANS: Prostate seeds COMBINED: MUSCULOSKELETAL: No acute or suspicious osseous abnormality. ADDITIONAL FINDINGS: None. IMPRESSION: No acute findings in the chest, abdomen, or pelvis. . 07:18 Medical Screening Exam initiated sp4 08/23 02:28 Order name: Basic Metabolic Panel; Complete Time: 05:21 sp4 08/23 02:28 Order name: CBC with Diff; Complete Time: 05:21 sp4 08/23 02:28 Order name: LFT's; Complete Time: 05:21 sp4 08/23 02:28 Order name: Magnesium; Complete Time: 05:21 sp4 08/23 02:28 Order name: NT PRO-BNP; Complete Time: 05:21 sp4 08/23 02:28 Order name: PT-INR; Complete Time: 05:21 sp4 08/23 02:28 Order name: Troponin HS; Complete Time: 05:21 sp4 08/23 02:28 Order name: TSH; Complete Time: 05:21 sp4 08/23 02:28 Order name: T4 Free; Complete Time: 05:21 sp4 08/23 03:36 Order name: Lipase; Complete Time: 05:21 EDMS 08/23 07:18 Order name: Ptt, Activated ph 08/23 09:00 Order name: Troponin High Sensitivity EDMS 08/23 09:00 Order name: Troponin High Sensitivity EDMS 08/23 09:00 Order name: Troponin High Sensitivity EDMS 08/23 09:00 Order name: Troponin High Sensitivity EDMS 08/23 02:28 Order name: XRAY Chest (1 view); Complete Time: 06:45 sp4 08/23 03:04 Order name: CT Chest, Abdomen, Pelvis - W/Contrast; Complete Time: 06:45 sp4 08/23 09:00 Order name: Echo with Doppler EDMS 08/23 09:01 Order name: Extrem Venous W Compress Shama EDMS 08/23 02:28 Order name: Cardiac monitoring; Complete Time: 02:30 sp4 08/23 02:28 Order name: EKG - Nurse/Tech; Complete Time: 02:30 sp4 08/23 02:28 Order name: IV Saline Lock; Complete Time: 02:41 sp4 08/23 02:28 Order name: Labs collected and sent; Complete Time: 02: sp4 08/23 02:28 Order name: O2 Per Protocol; Complete Time: 02: sp4 08/23 02:28 Order name: O2 Sat Monitoring; Complete Time: 02: sp4 08/23 08:20 Order name: Labs - recollect needed: recollect blue top; Complete Time: 08:32 bd EC: Rate is 61 beats/min. Rhythm is regular, Sinus Rhythm. Left axis deviation noted. IL sp4 interval is prolonged. QRS interval is normal. QT interval is normal. No Q waves. T waves are Normal. No ST changes noted. Clinical impression: No evidence of ischemia. Interpreted by me. Reviewed by me. Administered Medications: 02:52 Drug: morphine IVP or IV 6 mg IVP once over 4 mins Route: IVP; Infused Over: 4 mins; kd3 Site: left antecubital; 11:48 Follow up: Response: No adverse reaction ph 02:52 Drug: Ondansetron IVP 8 mg IVP once; over 2 minutes Route: IVP; Site: left antecubital; kd3 11:48 Follow up: Response: No adverse reaction ph 05:50 Drug: NS 0.9% IV 1000 ml IV at 125 ml/hr Per protocol; to be given as a bolus over 60 kd3 minutes Route: IV; Rate: 125 ml/hr; Site: left antecubital; 11:47 Follow up: IV Status: Infusion continued upon admission ph 11:47 Follow up: Response: No adverse reaction ph 05:51 Drug: morphine IVP or IV 4 mg IVP once over 4 mins Route: IVP; Infused Over: 4 mins; kd3 Site: left antecubital; 11:48 Follow up: Response: No adverse reaction ph 05:51 Drug: Ondansetron IVP 4 mg IVP once; over 2 minutes Route: IVP; Site: left antecubital; kd3 11:48 Follow up: Response: No adverse reaction ph 07:56 Drug: morphine IVP or IV 2 mg IVP once over 4 mins Route: IVP; Infused Over: 4 mins; ph Site: left antecubital; 11:47 Follow up: Response: No adverse reaction ph 11:47 Not Given (Other Intervention Used): [id number] units IV at bolus once ph 11:47 Not Given (Other Intervention Used): Heparin ([place] Drip) - ([id number] units, [id number] ph ml) 12 units/kg/hr IV at calculated rate Per protocol; Max initial rate 1000 units/hr Disposition Summary: 08/23/24 07:18 Hospitalization Ordered Notes: Hospitalization Status: Inpatient Admission sp4 Provider: [place] sp4 Condition: Stable sp4 Problem: new sp4 Symptoms: have improved sp4 Bed/Room Type: Standard sp4 Location: [facility] ER HOLD(08/23/24 10:05) bd Room Assignment: ERHOLD-(08/23/24 10:05) bd Diagnosis - Unstable angina sp4 Forms: - Medication Reconciliation Form sp4 - SBAR form sp4 - Leadership Thank You Letter sp4 Signatures: Dispatcher [employer] EDMS Carole Ku Patricia, RN RN Martine Crawford RN RN kd3 Jasmine Gandara RN RN ha1 Alphonso Olmstead MD MD sp4 Corrections: (The following items were deleted from the chart) 02: 02:29 Chest Single View+RAD.RAD.BRZ ordered. EDMS EDMS 02:29 02:29 THYROID STIMULAT HORMONE+C.LAB.BRZ ordered. EDMS EDMS 02:29 02:29 T4 FREE+C.LAB.BRZ ordered. EDMS EDMS 03:04 03:04 Chest Abdomen Pelvis W Con+CT.RAD.BRZ ordered. EDMS EDMS 03:36 03:04 LIPASE+C.LAB.BRZ ordered. EDMS EDMS 10:05 07:18 Telemetry/MedSurg (Inpatient) sp4 bd 10: 07:18 sp4 bd
--- NOTE | 2024-08-23 07:18 | ER ---
Nurse's Notes [facility] Name: Adrian Park Jr Age: 74 yrs Sex: Male : 1950 Arrival Date: 08/23/2024 Time: 02:19 Bed 4 Private MD: Diagnosis: Unstable angina Presentation: 08/23 02:21 Chief complaint: Patient states: CHEST PAIN STARTED 30 MINUTES AGO. 324mg OF aspirin ha1 given. 02:21 Coronavirus screen: Client denies travel out of the [place] in the last 14 days. Ebola ha1 Screen: No symptoms or risks identified at this time. Initial Sepsis Screen: Does the patient meet any 2 criteria? No. Patient's initial sepsis screen is negative. Does the patient have a suspected source of infection? No. Patient's initial sepsis screen is negative. Risk Assessment: Do you want to hurt yourself or someone else? Patient reports no desire to harm self or others. Onset of symptoms was August 23, 2024. 02:21 Method Of Arrival: EMS: [facility] ha1 02:21 Acuity: BILL 2 ha1 Triage Assessment: 02:21 General: Appears uncomfortable, Behavior is cooperative. Pain: Complains of pain in ha1 chest Pain radiates to left shoulder Pain currently is 8 out of 10 on a pain scale. Quality of pain is described as pressure, throbbing. Neuro: Level of Consciousness is awake, alert, obeys commands, Oriented to person, place, time, situation. Cardiovascular: Reports chest pain, Capillary refill < 3 seconds Patient's skin is warm and dry. Rhythm is sinus rhythm with 1st degree heart block. Respiratory: Airway is patent Respiratory effort is even, unlabored, Respiratory pattern is regular, symmetrical. GI: No signs and/or symptoms were reported involving the gastrointestinal system. Abdomen is round non-distended, obese. : No signs and/or symptoms were reported regarding the genitourinary system. Derm: Skin is pink, warm \T\ dry. Musculoskeletal: Circulation, motion, and sensation intact. Historical: - Allergies: : Lipitor; ha1 - PMHx: 02: Cancer; HTN; Hypercholesterolemia; bradycardia; ha1 - PSHx: : SHAMA foot surgery; face surgery; ha1 - Immunization history:: Adult Immunizations up to date. - Infectious Disease History:: Denies. - Social history:: Smoking status: unknown. - Family history:: not pertinent. Screenin:[facility] ED Fall Risk Assessment (Adult) History of falling in the last 3 months, kd3 including since admission No falls in past 3 months (0 pts) Confusion or Disorientation No (0 pts) Intoxicated or Sedated No (0 pts) Impaired Gait No (0 pts) Mobility Assist Device Used No (0 pt) Altered Elimination No (0 pt) Score/Fall Risk Level 0 - 2 = Low Risk Oriented to surroundings. Abuse screen: Denies threats or abuse. Denies injuries from another. Nutritional screening: No deficits noted. Tuberculosis screening: No symptoms or risk factors identified. Assessment: 04:44 General: Appears in no apparent distress. Behavior is calm, cooperative. Pain: Pain kd3 currently is 3 out of 10 on a pain scale. Quality of pain is described as Pain began 30 mins prior to arrival. Neuro: Level of Consciousness is awake, alert, obeys commands, Oriented to person, place, time, situation. Cardiovascular: Capillary refill < 3 seconds Patient's skin is warm and dry. Rhythm is sinus rhythm. 07:59 General: Appears in no apparent distress. Behavior is calm, cooperative, drowsy, quiet. ph Pain: Complains of pain in chest. Neuro: Level of Consciousness is awake, alert, obeys commands, Oriented to person, place, time, situation. Cardiovascular: Reports chest pain, Capillary refill < 3 seconds Patient's skin is warm and dry. Rhythm is sinus bradycardia. Respiratory: Airway is patent Respiratory effort is even, unlabored, Respiratory pattern is regular, symmetrical. GI: No signs and/or symptoms were reported involving the gastrointestinal system. Derm: Skin is pink, warm \T\ dry. 09:12 Reassessment: Patient appears in no apparent distress at this time. Patient and/or ph family updated on plan of care and expected duration. Pain level reassessed. Patient is alert, oriented x 3, equal unlabored respirations, skin warm/dry/pink. Vital Signs: 02:21 BP 117 / 67; Pulse 60; Resp 17 S; Temp 98.1(O); Pulse Ox 98% on R/A; Weight 114.76 kg; ha1 Height 5 ft. 9 in. ; Pain 8/10; 02:40 BP 117 / 77; Pulse 61; Resp 20; Pulse Ox 100% ; al5 04:46 BP 118 / 71; Pulse 58; Resp 17; Pulse Ox 98% on R/A; kd3 06:14 BP 128 / 72; Pulse 62; Resp 18; Pulse Ox 98% on R/A; kd3 07:52 BP 103 / 64; Pulse 52; Pulse Ox 98% on R/A; ap3 02:21 Body Mass Index 37.36 (114.76 kg, 175.26 cm) ha1 02:21 Pain Scale: Adult ha1 Juliana Coma Score: 07:06 Eye Response: spontaneous(4). Motor Response: obeys commands(6). Verbal Response: sp4 oriented(5). Total: 15. ED Course: 02:21 Patient arrived in ED. jj6 02:28 Martine Crawford, RN is Primary Nurse. kd3 02:28 Alphonso Olmstead MD is Attending Physician. sp4 02:41 T4 Free Sent. sb4 02:41 TSH Sent. sb4 02:43 Triage completed. ha1 02:52 T4 Free Sent. kd3 02:52 TSH Sent. kd3 02:52 Basic Metabolic Panel Sent. kd3 02:52 CBC with Diff Sent. kd3 02:52 LFT's Sent. kd3 02:52 Magnesium Sent. kd3 02:52 NT PRO-BNP Sent. kd3 02:52 PT-INR Sent. kd3 02:52 Troponin HS Sent. kd3 02:52 Initial lab(s) drawn, by me, sent to lab. kd3 03:24 XRAY Chest (1 view) In Process Unspecified. EDMS 04:01 CT Chest, Abdomen, Pelvis - W/Contrast In Process Unspecified. EDMS 04:45 No provider procedures requiring assistance completed. Patient maintains SpO2 kd3 saturation greater than 95% on room air. 04:45 Client placed on continuous cardiac and pulse oximetry monitoring. NIBP monitoring kd3 applied. property assessment monitor on. Pulse ox on. NIBP on. 04:45 Patient has correct armband on for positive identification. Provided Education on: kd3 chest pain work up . 04:45 Arm band placed on right wrist. kd3 07:17 Los Mijares PA is Hospitalizing Provider. sp4 07:45 Missed attempt(s): 22 gauge in left hand. Bleeding controlled, band aid applied, ph catheter tip intact. 07:50 Initial lab(s) drawn, by me, sent to lab. Inserted saline lock: 24 gauge in left hand, ph using aseptic technique. Blood collected. Flushed with 10 mL NS. 08:01 Ptt, Activated Sent. ph 08:32 Lab(s) recollected, by me, sent to lab. ph 09:26 Repeat lab(s) drawn. by me, sent to lab. kb4 10:15 Patient admitted, IV remains in place. ph Administered Medications: 02:52 Drug: morphine IVP or IV 6 mg IVP once over 4 mins Route: IVP; Infused Over: 4 mins; kd3 Site: left antecubital; 11:48 Follow up: Response: No adverse reaction ph 02:52 Drug: Ondansetron IVP 8 mg IVP once; over 2 minutes Route: IVP; Site: left antecubital; kd3 11:48 Follow up: Response: No adverse reaction ph 05:50 Drug: NS 0.9% IV 1000 ml IV at 125 ml/hr Per protocol; to be given as a bolus over 60 kd3 minutes Route: IV; Rate: 125 ml/hr; Site: left antecubital; 11:47 Follow up: IV Status: Infusion continued upon admission ph 11:47 Follow up: Response: No adverse reaction ph 05:51 Drug: morphine IVP or IV 4 mg IVP once over 4 mins Route: IVP; Infused Over: 4 mins; kd3 Site: left antecubital; 11:48 Follow up: Response: No adverse reaction ph 05:51 Drug: Ondansetron IVP 4 mg IVP once; over 2 minutes Route: IVP; Site: left antecubital; kd3 11:48 Follow up: Response: No adverse reaction ph 07:56 Drug: morphine IVP or IV 2 mg IVP once over 4 mins Route: IVP; Infused Over: 4 mins; ph Site: left antecubital; 11:47 Follow up: Response: No adverse reaction ph 11:47 Not Given (Other Intervention Used): [id number] units IV at bolus once ph 11:47 Not Given (Other Intervention Used): Heparin ([place] Drip) - ([id number] units, [id number] ph ml) 12 units/kg/hr IV at calculated rate Per protocol; Max initial rate 1000 units/hr Medication: 04:45 VIS not applicable for this client. kd3 Outcome: 07:18 Decision to Hospitalize by Provider. sp4 10:15 Admitted to ER Hold. Please see [facility] for further documentation. ph 10:15 Condition: stable 10:15 Instructed on the need for admit, 11:49 Patient left the ED. ph Signatures: Dispatcher [employer] EDMS Francheska Portillo RN RN Magdalena Wallis RN RN ap3 Conchis Collins6 Martine Crawford RN RN kd3 Jasmine Gandara RN RN ha1 Anastasia Delong, PA-C PA-C [email or web address] Alphonso Olmstead MD MD sp4 Magdalena Velazquez RN RN al5 Yamileth Munoz kb4
[2024-08-23] MEDS ORDERED: HEPARIN 5000 UNIT/ML 1 ML VIAL ONE ×2 (07:25→11:13)
[2024-08-23] MEDS ORDERED: HEPARIN/D5W 0 UNIT/0 ML BAG IV ONE (07:25)
[2024-08-23] MEDS ORDERED: ONDANSETRON 4 MG/2 ML VIAL IV PRN (08:56)
[2024-08-23] MEDS ORDERED: ACETAMINOPHEN 500 MG TAB PO PRN (08:56)
[2024-08-23] MEDS ORDERED: MORPHINE 2 MG/ML SYR IV PRN (08:59)
[2024-08-23] MEDS: HEPARIN 5000 UNIT/ML 1 ML VIAL SQ SCH (09:00)
[2024-08-23] MEDS: NA CHLORIDE 0.9% 1,000 ML IV SCH (09:00)
--- NOTE | 2024-08-23 09:01 | P.HP ---
Certification for Inpatient Patient admitted to: Observation With expected LOS: <2 Midnights Patient will require the following post-hospital care: None Practitioner: I am a practitioner with admitting privileges, knowledge of patient current condition, hospital course, and medical plan of care. Services: Services provided to patient in accordance with Admission requirements found in Title 42 Section 412.3 of the Code of Federal Regulations Patient History Date of Service: 08/23/24 Reason for admission: Chest pain History of Present Illness: 74-year-old patient presented with chest pain which started around 1 AM this morning, it is on the left side of the chest, radiating to left shoulder and to the back, it was sharp and severe in nature, inspiratory chest pain, on and off, pain is little better now after getting medications in the emergency room. He was also feeling some shortness of breath. He has on and off leg swelling but this is going on for some time. He has chronic arthritic joint pains. Other than this he denies any other acute complaints. No headache or blackouts. No double vision or blurry vision. No cough or sputum production. No nausea or vomiting. No abdominal pain. No constipation or diarrhea. No blood in the urine or stool. No fever. No recent change in the weight. Review of systems: All other 10 point review of systems are negative other than as mentioned above. Allergies and medications: Reviewed, as per med rec EMR. Past medical history: Hypertension, hyperlipidemia, hypothyroidism, throat cance r status post treatment Past surgical history: Foot surgery, face surgery Social history: No smoking or alcohol or drugs Family history: No family history of NM or CVA Physical examination: Vital signs: Reviewed, as per EMR. General appearance: Alert and comfortable HEENT: Extraocular movements intact, oral mucosa moist. 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 [Bactrim Ds 800 MG/160 MG] 1 tab PO BID #6 tab 04/01/22 Tramadol HCl [Ultram] 50 mg PO Q8H #12 04/01/22 Physical Examination - Studies Laboratory Data (last 24 hrs) 08/23/24 08/23/24 08/23/24 08:25 03:04 02:39 WBC Hgb Hct Plt Count PT 12.5 INR 1.10 APTT 32.1 Sodium Potassium BUN Creatinine Glucose Magnesium Total Bilirubin AST ALT Alkaline Phosphatase Lipase Cancelled 08/23/24 08/23/24 02:39 02:39 WBC 6.10 Hgb 13.1 L Hct 39.1 L Plt Count 154 PT INR APTT Sodium 138 Potassium 4.0 BUN 28 H Creatinine 1.34 H Glucose 114 H Magnesium 2.2 Total Bilirubin 0.4 AST 18 ALT 23 Alkaline Phosphatase 61 Lipase 27 Assessment and Plan - Plan Assessment and plan: 1. Chest pain: Troponins negative, CT chest negative, patient was started on heparin drip by cardiology, will continue this for now due to chest pain, cardiology was already consulted, will get an echocardiogram, will keep him n.p.o. for now until seen by cardiology. 2. Chronic anemia: Monitor closely 3. CKD 3A: Monitor closely 4. Fatty liver on CT scan: Follow-up with PCP and GI 5. Hypertension: Continue lisinopril 6. Hyperlipidemia: Continue statin 7. Hypothyroidism: Continue home medications DVT prophylaxis: Heparin drip CODE STATUS: He would like to be full code Advanced directives: I discussed advanced directives with the patient, his Shiela is the POA. - Advance Directives Does patient have a Living Will: No Does patient have a Durable POA for Healthcare: No
--- NOTE | 2024-08-23 10:57 | RAD REPORT ---
EXAMINATION: US bilateral LOWER EXTREMITY VENOUS DOPPLER CLINICAL INDICATION: Leg swelling TECHNIQUE: Sonographic evaluation of the veins of the lower extremity bilaterally formed.Grayscale, c olor and spectral analysis performed on all vessels COMPARISON: 2023 FINDINGS: The common femoral, superficial femoral, greater saphenous, popliteal and posterior tibial veins bila terally are compressible and demonstrate augmentation. Doppler demonstrates good flow. IMPRESSION: No evidence of deep venous thrombosis involving either lower extremity
[2024-08-23] MEDS ORDERED: CLOPIDOGREL 75 MG TABLET ONE (11:13)
[2024-08-23] MEDS ORDERED: HEPARIN 10,000 UNIT/10 ML VIAL IV ONE (11:13)
[2024-08-23] MEDS ORDERED: ATROPINE SULF 1 MG/10 ML SYR IV ONE (11:13)
[2024-08-23] MEDS ORDERED: LIDOCAINE 1% 20 ML MDV ONE (11:13)
[2024-08-23] MEDS ORDERED: HEPA 1000U/500MLS 2,000 UNIT/1,000 ML BAG IV ONE (11:13)
[2024-08-23] MEDS ORDERED: ASPIRIN 325 MG TAB ONE (11:14)
[2024-08-23] MEDS ORDERED: TICAGRELOR 90 MG TABLET PO ONE (11:14)
[2024-08-23] MEDS ORDERED: MIDAZOLAM HCL 2 MG/2 ML INJ ONE (11:19)
[2024-08-23] MEDS ORDERED: FENTANYL CITR 100 MCG/2 ML ONE (11:19)
--- NOTE | 2024-08-23 11:44 | P.CNS ---
Date of Consult: 08/23/24 Chief Complaint: Chest pain History of Present Illness: Patient with PMH of mild CAD, HTN presented with abdominal/chest and shoulder pain that happened this morning, sharp in nature, no radiation, still have pain upon exam, denies any other cardiac symptoms. Allergies atorvastatin [From Lipitor] Allergy (Severe, Verified 03/24/22 14:04) Leg Cramps Home medications list reviewed: Yes Home Medications: Rosuvastatin [Crestor*] 10 mg PO DAILY 03/24/22 Tamsulosin HCl 0.4 mg PO DAILY 03/24/22 Tramadol HCl [Ultram] 50 mg PO BIDP PRN 03/24/22 lisinopriL [Zestril] 20 mg PO DAILY 03/24/22 Methylprednisolone [Medrol dosepack] 4 mg PO DIRECTED 6 Days #1 leonor 04/01/22 Smz./Tmp. [Bactrim Ds 800 MG/160 MG] 1 tab PO BID #6 tab 04/01/22 Tramadol HCl [Ultram] 50 mg PO Q8H #12 04/01/22 Review of Systems 10-point ROS is otherwise unremarkable Physical Examination General: Alert, In no apparent distress HEENT: Atraumatic, PERRLA, Mucous membr. moist/pink, EOMI, Sclerae nonicteric Neck: Supple, 2+ carotid pulse no bruit, No LAD, Without JVD or thyroid abnormality Respiratory: Clear to auscultation bilaterally, Normal air movement Cardiovascular: Regular rate/rhythm, Normal S1 S2 Gastrointestinal: Normal bowel sounds, No tenderness Musculoskeletal: No tenderness Integumentary: No rashes Neurological: Normal gait, Normal speech, Normal tone, Normal affect Lymphatics: No axilla or inguinal lymphadenopathy Laboratory Data (last 24 hrs) 08/23/24 08/23/24 08/23/24 08:25 03:04 02:39 WBC Hgb Hct Plt Count PT 12.5 INR 1.10 APTT 32.1 Sodium Potassium BUN Creatinine Glucose Magnesium Total Bilirubin AST ALT Alkaline Phosphatase Lipase Cancelled 08/23/24 08/23/24 02:39 02:39 WBC 6.10 Hgb 13.1 L Hct 39.1 L Plt Count 154 PT INR APTT Sodium 138 Potassium 4.0 BUN 28 H Creatinine 1.34 H Glucose 114 H Magnesium 2.2 Total Bilirubin 0.4 AST 18 ALT 23 Alkaline Phosphatase 61 Lipase 27 - Problems (1) Chest pain Current Visit: Yes Status: Acute Plan: Patient mention that he had a coronary angiogram almost 8 months ago and was told he has mild to moderate CAD, no intervention needed at that time. NPO for coronary angiogram ASA 81 mg daily Lipitor 40 mg daily (2) HTN (hypertension) Current Visit: Yes Status: Acute Plan: reconcile and resume home medications
--- NOTE | 2024-08-23 13:06 | OP ---
Date of Procedure: 08/23/2024 Surgeon: Rubin Miranda Procedure Performed: Selective coronary angiogram. Indication For Procedure: Unstable angina. Complications: None. Estimated Blood Loss: Less than 50 cc. Access: Right radial, closed by TR band. Sedation Time: 20 minutes with 1 of Versed and 25 of fentanyl. Description Of Procedure: After risks, benefits, and alternatives were explained to the patient, the patient agreed to proceed with procedure and signed informed consent. The patient was brought back to the laborer fryer farm, prepped and draped in sterile fashion. Time-out was performed. Sedation was admini stered. Next, right radial access was obtained using ultrasound-guided micropuncture technique. Tig er 4 catheter was advanced over J-wire to the aortic root. Selective angiogram was done using same c atheter. At the end of procedure, catheter was removed over a J-wire. Sheath was removed. TR band was applied. Hemostasis achieved. The patient was moved back to recovery in stable condition. Findings: 1. Left main, separate ostia. 2. LAD, proximal mild luminal irregularities, mid 40% to 50% disease and mild luminal irregularities. 3. Left circ, mild luminal irregularities. 4. RCA, diffuse with mild luminal irregularities. 5. RPDA, proximal mild luminal irregularities, mid 40% to 50% disease and mild luminal irregularities . Assessment And Plan: 1. [id number] mid to distal LAD disease with [id number] and mid RPDA disease. 2. The plan is to continue medical management. BOOGIE/RACHEL Voice ID: [id number] Report ID: [id number]
[2024-08-23 13:44] VITALS: O2SAT 16
[2024-08-23] MEDS: ACETAMINOPHEN 325 MG TABLET ONE (13:58)
[2024-08-23] MEDS ORDERED: HYDRALAZINE HCL 20 MG/ML VIAL IV PRN (16:00)
[2024-08-23 18:21] VITALS: BMI 34.7
[2024-08-23] MEDS: TRAMADOL HCL 50 MG TAB PO PRN (18:46)
[2024-08-23] MEDS ORDERED: ATORVASTATIN 40 MG TAB PO SCH (21:00)
[2024-08-24 07:27] LABS: Absolute Eosinophils 0.1 K/uL (0-0.5); Absolute Lymphocytes (CBC) 0.9 K/uL (0.7-4.9); Absolute Monocytes 0.9 K/uL (0.1-1.3); Absolute Neutrophil 5.5 K/uL (1.8-8.0); Basophils % 0.2 % (0-1.3); Eosinophils % 1.3 % (0-4.4); Hematocrit 36.7 % (39.6-49.0); Hemoglobin 12.2 g/dL (13.6-17.9); MCH 30.6 pg (27.0-35.0); MCHC 33.2 g/dL (32.0-36.0); MCV 92.1 fL (80-100); MPV 7.9 fL (7.6-11.3); Monocytes % 12.3 % (3.3-12.3); Neutrophils % 74.2 % (41.7-73.7); Nucleated Red Blood Cells % 0.1 % (0-0); Platelets 135 thou/uL (152-406); RBC Red Blood Cell Count 3.98 M/uL (4.33-5.43)
[2024-08-24 07:48] LABS: Anion Gap 10.8 mEq/L (5.0-15.0); Potassium 3.8 mEq/L (3.5-5.1); Troponin High Sensitivity 10.8 pg/mL (<58.9)
[2024-08-24 08:17] VITALS: BP 102/74; TEMP 98
--- NOTE | 2024-08-24 09:43 | P.DS ---
Admission Date: 08/23/24 Discharge Date: 08/24/24 Disposition: DC HOME/HOME HEALTH CARE Discharge Condition: GOOD Reason for Admission: Chest pain Hospital Course: 1. Chest pain: Troponins negative CT chest negative Had a cardiac cath, showed mild disease, recommended medical management. Echo was ordered but not done, cardiology is okay to do that as an outpatient next week 2. Chronic anemia: Follow-up with PCP 3. CKD 3A: Follow-up with PCP 4. Fatty liver on CT scan: Follow-up with PCP and GI 5. Hypertension: Continue lisinopril 6. Hyperlipidemia: Continue rosuvastatin on the home meds but he states that he is not taking 7. Hypothyroidism: Follow-up with PCP 74-year-old patient presented with chest pain, troponins negative, due to persistent pain, cardiology was consulted, he had a cardiac cath, which showed mild to moderate disease, recommended medical management, when I see the patient today he is doing well without any acute problems, he denies any more chest pain, he was feeling some shortness of breath but he says this is somewhat chronic, he will need follow-up with PCP and cardiology, otherwise no other acute issues going on so I am planning to discharge him to go home, follow-up with PCP and cardiology with repeat labs. He will need an echocardiogram next week. Subjective: No chest pain. Complaining of some shortness of breath but he says this is somewhat chronic. No nausea or vomiting. No abdominal pain. No obvious bleeding. Looks comfortable in the bed. Objective: General appearance: Alert and comfortable CVS: Normal S1 and S2 Lungs: Clear to auscultation bilaterally Abdomen: Soft, bowel sounds present, no tenderness Extremities: No lower extremity edema Vital Signs/Physical Exam: Temp Pulse Resp BP Pulse Ox 98 F 103 H 14 102/74 93 08/24/24 08:00 08/24/24 08:00 08/24/24 08:00 08/24/24 08:00 08/24/24 08:00 Laboratory Data at Discharge: WBC 7.40 thou/uL (4.3-10.9) 08/24/24 07:12 Hgb 12.2 g/dL (13.6-17.9) L 08/24/24 07:12 Hct 36.7 % (39.6-49.0) L 08/24/24 07:12 Plt Count 135 thou/uL (152-406) L 08/24/24 07:12 PT 12.5 SECONDS (10-13.0) 08/23/24 02:39 INR 1.10 08/23/24 02:39 APTT 32.1 SECONDS (27.2-37.4) 08/23/24 08:25 Sodium 137 mEq/L (136-145) 08/24/24 07:12 Potassium 3.8 mEq/L (3.5-5.1) 08/24/24 07:12 BUN 26 mg/dL (7-18) H 08/24/24 07:12 Creatinine 1.02 mg/dL (0.70-1.30) 08/24/24 07:12 Glucose 99 mg/dL (74-106) 08/24/24 07:12 Magnesium 2.2 mg/dL (1.6-2.4) 08/23/24 02:39 Total Bilirubin 0.4 mg/dL (0.2-1.0) 08/23/24 02:39 AST 18 U/L (15-37) 08/23/24 02:39 ALT 23 U/L (16-61) 08/23/24 02:39 Alkaline Phosphatase 61 U/L (45-117) 08/23/24 02:39 Lipase Cancelled 08/23/24 03:04 Home Medications: Rosuvastatin [Crestor*] 10 mg PO DAILY 03/24/22 Tramadol HCl [Ultram] 50 mg PO TID PRN 03/24/22 lisinopriL [Zestril] 20 mg PO DAILY 03/24/22 Aspirin 1 tab PO DAILY 08/23/24 Levothyroxine Sodium 1 tab PO DAILY 08/23/24 Omeprazole 40 mg PO DAILY 08/23/24 Diet: AHA Activity: Ad josé antonio Followup: Rubin Miranda MD [ACTIVE - CAN ADMIT] - (f/u in 1 week, get echo) Consuelo Carter MD [Primary Care Provider] - 1 Week (f/u with PCP in 5-7 days with CBC and CMP, continue to take statin. Fatty liver will need f/u with PCP) Time spent managing pt's care (in minutes): 32
[2024-08-24] MEDS: lisinopriL 20 MG TAB PO SCH (10:10)
[2024-08-24] MEDS: ASPIRIN EC 81 MG TAB PO SCH (10:10)
--- NOTE | 2024-08-31 13:15 | EKG ---
Test Date: 2024-08-23 Test Time: 02:27:04 Zoology Technical Officer: LISA MEASUREMENT RESULTS: Intervals: Rate: 61 VA: 218 QRSD: 108 QT: 414 QTc: 416 [place]: P: 48 VA: 218 QRS: -78 T: 10 INTERPRETIVE STATEMENTS: Sinus rhythm with 1st degree AV block Left axis deviation Low voltage QRS Cannot rule out Anterior infarct, age undetermined Abnormal ECG Compared to ECG 03/24/2022 14:17:35 Left-axis deviation now present Left anterior fascicular block no longer present Myocardial infarct finding still present Electronically Signed On 08-31-24 12:51:44 CDT by Rubin Miranda
== END 2024-08-24 11:15 | disposition home health service (06) ==
LOC: ER 02:19 → ERHOLD 08:56 → 4TH 14:01
PROVIDERS: ADMIT Hospitalist; ATTEND Hospitalist
PROC: B2111ZZ Fluoroscopy of Multiple Coronary Arteries using Low Osmolar Contrast (ICD-10-PCS; principal; 2024-08-23)
DX: I25.110 Atherosclerotic heart disease of native coronary artery with unstable angina pectoris (principal); I12.9 Hypertensive chronic kidney disease with stage 1 through stage 4 chronic kidney disease, or unspecified chronic kidney disease; N18.31 Chronic kidney disease, stage 3a; E78.5 Hyperlipidemia, unspecified; D64.9 Anemia, unspecified; E78.00 Pure hypercholesterolemia, unspecified; E03.9 Hypothyroidism, unspecified; K76.0 Fatty (change of) liver, not elsewhere classified; Z79.899 Other long term (current) drug therapy; Z88.8 Allergy status to other drugs, medicaments and biological substances; Z85.818 Personal history of malignant neoplasm of other sites of lip, oral cavity, and pharynx
CPT/HCPCS: 36415; 71045; 71260; 74177; 76937; 80048; 80076; 83690; 83735; 83880; 84439; 84443; 84484; 85025; 85610; 85730; 93005; 93454; 93970; 96361; 96374; 96375; 99152; 99153; 99285; C1893; G0378; J0461; J1644; J2003; J2250; J2270; J2405; J3010; J7030; Q9966; Q9967